=== PATIENT | male | born 1990 | race Caucasian/White ===

== ENCOUNTER 2018-08-08 17:05 | Emergency (ER) | payer OTHER ==
[~2018-08-08] VITALS: Ht 167.6 cm; Wt 97.5 kg
[2018-08-08 17:15] VITALS: BP_SYST 127
[2018-08-08 22:46] VITALS: BP_SYST 133
== END 2018-08-08 22:46 | disposition home or self-care (01) ==
LOC: SED 17:05
DX: R07.89 Other chest pain (principal); M25.561 Pain in right knee; R03.0 Elevated blood-pressure reading, without diagnosis of hypertension; F43.10 Post-traumatic stress disorder, unspecified
CPT/HCPCS: 81002; 93005; 99283

== ENCOUNTER 2019-07-02 02:41 | Emergency (ER) | payer OTHER ==
[~2019-07-02] VITALS: Ht 185.4 cm; Wt 99.8 kg
[2019-07-02 02:55] VITALS: BP_SYST 130
[2019-07-02 06:00] VITALS: BP_SYST 135
== END 2019-07-02 06:00 | disposition home or self-care (01) ==
LOC: SED 02:41
DX: M25.571 Pain in right ankle and joints of right foot (principal); M25.471 Effusion, right ankle; W06.XXXA Fall from bed, initial encounter; Y93.39 Activity, other involving climbing, rappelling and jumping off; Y92.89 Other specified places as the place of occurrence of the external cause; Y99.8 Other external cause status
CPT/HCPCS: 93971; 99284